=== PATIENT | female | born 1995 | race Two or more races ===

== ENCOUNTER 2016-12-19 13:49 | Emergency (ER) | payer OTHER ==
[~2016-12-19] VITALS: Ht 157.5 cm; Wt 54.4 kg
[~2016-12-19 13:49] MED LIST: ALBUTEROL SULF8.5 GM INH; AMOXICILLIN500 MG ORAL; ANUSOL HC1 SUPP RECTAL; NKM; OMEPRAZOLE20 M3 ORAL; PRILOSEC20 MG ORAL; PROMETHAZINE-C118 M1 ORAL; ZOFRAN ODT4 MG ORAL
[2016-12-19 13:57] VITALS: BP 120/69
[2016-12-19] MEDS ORDERED: PROAIR HFA8.5 GM INH (14:13)
[2016-12-19] MEDS ORDERED: PROMETHAZINE-D118 ML ORAL (14:13)
[2016-12-19] MEDS ORDERED: ZITHROMAX250 MG ORAL (14:13)
[2016-12-19 14:15] VITALS: BP 120/69
--- NOTE | 2016-12-19 16:51 | Emergency Room Report ---
History of Present Illness General Chief Complaint: Upper Respiratory Illness Source: Patient Present Illness HPI The patient is a 21-year-old female is in for one week of subjective fevers, chills, productive cough, and congestion. Pt denies any medical history. The patient has been using dayquil which does not help. Pt denies any recent travel. Pt does admit to recent sick contact with her boyfriend who had pneumonia. The patient denies any pain and denies N, V, hemoptysis, CARO, neck pain/stiffness, rash, abd pain, SOB, CP Allergies: Coded Allergies: No Known Allergies (Unverified , 01/05/13) Patient History Past Medical History: see triage record Pertinent Family History: none Last Menstrual Period: 11/22/16 : 0 Reviewed Nursing Documentation: PMH: Agreed, PSxH: Agreed Nursing Documentation-PMH Past Medical History: No Stated History Review of Systems All Other Systems: negative except mentioned in HPI Physical Exam Vital Signs Date Time Temp Pulse Resp B/P Pulse Ox O2 Delivery O2 Flow Rate FiO2 12/19/16 13:52 98.1 89 20 120/69 99 Room Air Sp02 EP Interpretation: reviewed, normal General Appearance: no apparent distress, alert, GCS 15, non-toxic Head: normocephalic, atraumatic Eyes: bilateral eye PERRL, bilateral eye normal inspection ENT: hearing grossly normal, normal pharynx, no angioedema, normal voice, uvula midline, moist mucus membranes Neck: full range of motion, supple/symm/no masses Respiratory: chest non-tender, lungs clear, normal breath sounds, speaking full sentences, wheezing - Bilat lower lungs Cardiovascular #1: regular rate, rhythm, no edema Cardiovascular #2: 2+ carotid (R), 2+ carotid (L), 2+ radial (R), 2+ radial (L) , 2+ dorsalis pedis (R), 2+ dorsalis pedis (L) Gastrointestinal: normal bowel sounds, non tender, soft, non-distended, no guarding, no rebound Musculoskeletal: back normal, gait/station normal, normal range of motion, non- tender Neurologic: alert, oriented x3, responsive, motor strength/tone normal, sensory intact, speech normal Psychiatric: judgement/insight normal, memory normal, mood/affect normal, no suicidal/homicidal ideation Skin: normal color, no rash, warm/dry, well hydrated Lymphatic: no adenopathy Medical Decision Making PA Attestation Dr. Coe is my supervising physician. Patient management was discussed with my supervising physician Diagnostic Impression: Primary Impression: Atypical pneumonia ER Course The patient is a 21-year-old female is in for one week of subjective fevers, chills, productive cough, and congestion Differential diagnosis include but not limited to pharyngitis, sinusitis, AOM, bronchitis, PNA Physical exam: Vitals within normal limits. No apparent distress HEENT exam is unremarkable. No tonsillar edema or exudate. Uvula midline. Lungs: Good breath sounds. There is bilateral lower lobe wheezing. Skin is warm and dry. No rash The patient will be MN'ed home with a prescription for albuterol, cough medication, and Z pack. ER precautions given Last Vital Signs Date Time Temp Pulse Resp B/P Pulse Ox O2 Delivery O2 Flow Rate FiO2 12/19/16 14:15 98.1 20 120/69 99 Room Air 12/19/16 13:57 89 Status: improved Disposition: HOME, SELF-CARE Condition: Improved Scripts D-Methorphan Hb/Prometh Hcl* (PROMETHAZINE-DM SYRUP*) 118 Ml Syrup 5 ML ORAL Q6H Y for For Cough, #118 ML 0 Refills Prov: TERZIAN,JOSELUIS P.A. 12/19/16 Albuterol Sulfate* (PROAIR HFA*) 8.5 Gm Hfa.aer.ad 2 PUFFS INH Q6H, #8.5 GM 0 Refills Prov: TERZIAN,JOSELUIS P.A. 12/19/16 Azithromycin* (ZITHROMAX*) 250 Mg Tablet 250 MG ORAL DAILY, #6 TAB 0 Refills Take two tables once daily for 1 day, then one tablet once daily for 4 days. Prov: TERZIAN,JOSELUIS P.A. 12/19/16 Referrals: [facility],REFERRING (PCP) Patient Instructions: Community-Acquired Pneumonia, Adult Additional Instructions: I discussed my findings with the patient. All questions and concerns have been answered. Treatment and medication compliance have been addressed. I advised the patient that they need to follow up with PMD in 3-5 days. Return to ED if pain remains or worsens, cough worsens or remains, you notice blood in your sputum, you notice wheezing, you experience a fever, or if needed for any reason. Patient verbalized understanding of discharge instructions. JOSELUIS COBB Dec 19, 2016 16:51
== END 2016-12-19 14:15 | disposition home or self-care (01) ==
LOC: EMR 14:10
DX: J18.9 Pneumonia, unspecified organism (principal)
CPT/HCPCS: 99284